=== PATIENT | female | born 1945 | race Caucasian/White ===

== ENCOUNTER → 2019-07-01 07:40 | Outpatient (CLI) | payer MEDICARE, MEDICAID ==
[2012-11-14 15:42] VITALS: BMI 23.2
[~2019-07-01 07:40] MED LIST: ACETAMINOPHEN325 MG PO; ALOPHEN PILLS5 MG PO; HYDROCODON-ACE1 EAC7 PO; K-TAB10 MEQ PO; MACROBID100 MG PO; NORMODYNE / TR200 MG PO; NORVASC5 MG PO; PRAVACHOL40 MG PO; ULTRAM50 MG PO; VITAMIN D31000 UNIT PO; ZANAFLEX4 MG PO
== END | disposition home or self-care (01) ==
LOC: D.CT 07:40
PROVIDERS: ATTEND Legal Medicine
DX: N28.1 Cyst of kidney, acquired (principal)

== ENCOUNTER 2019-07-15 13:41 | Emergency (ER) | payer MEDICARE, MEDICAID ==
[~2019-07-15] VITALS: Ht 162.6 cm; Wt 65.5 kg
[2019-07-15 13:47] VITALS: Ht 162.6 cm; Wt 65.5 kg
[2019-07-15] MEDS ORDERED: NORMODYNE / TR200 MG PO (13:49)
[2019-07-15] MEDS ORDERED: ALOPHEN PILLS5 MG PO (13:49)
[2019-07-15] MEDS ORDERED: HYDROCODON-ACE1 EAC7 PO (13:49)
[2019-07-15] MEDS ORDERED: ZANAFLEX4 MG PO (13:50)
[2019-07-15] MEDS ORDERED: NORVASC5 MG PO (13:50)
[2019-07-15] MEDS ORDERED: PRAVACHOL40 MG PO (13:50)
[2019-07-15] MEDS ORDERED: K-TAB10 MEQ PO (13:50)
[2019-07-15] MEDS ORDERED: ULTRAM50 MG PO (13:51)
[2019-07-15] MEDS ORDERED: ACETAMINOPHEN325 MG PO (13:51)
[2019-07-15] MEDS ORDERED: VITAMIN D31000 UNIT PO (13:52)
[2019-07-15 14:07] LABS: BASOPHILS 0.1 % (0-2); EOSINOPHILS 4.7 % (0-7); HEMATOCRIT 41.4 % (36.0-48.0); HEMOGLOBIN 13.8 g/dL (12-16); IMMATURE GRANULOCYTES 0.4 % (0-5); LYMPHOCYTES 9.5 % (15-50); MCH 29.2 pg (26.0-34.0); MCHC 33.3 g/dL (31.0-37.0); MCV 87.7 fL (80.0-100.0); MEAN PLATELET VOLUME 9.8 fL (7.4-10.4); MONOCYTES 8.1 % (2-11); NEUTROPHILS 77.2 % (40-80); RBC 4.72 10x6/uL (4.00-5.40); RDW 13.5 % (11.5-14.5); WBC 13.5 10x3/uL (4.8-10.8)
[2019-07-15 14:23] LABS: ALBUMIN 2.8 g/dL (3.4-5.0); ANION GAP 11.3 mmol/L (8-16); BILIRUBIN - TOTAL 0.37 mg/dL (0.2-1.3); CALCIUM 9.4 mg/dL (8.5-10.1); POTASSIUM - SERUM 3.3 mmol/L (3.5-5.1); PROTEIN - SERUM 6.4 g/dL (6.4-8.2)
[2019-07-15 14:26] LABS: PLATELET COUNT 291 10x3/uL (130-400)
[2019-07-15 14:54] LABS: APPEARANCE CLEAR (CLEAR); BILIRUBIN NEGATIVE (NEGATIVE); COLOR YELLOW (YELLOW); GLUCOSE NEGATIVE (NEGATIVE); KETONE NEGATIVE (NEGATIVE); NITRITE NEGATIVE (NEGATIVE); PROTEIN 2+ mg/dL (NEGATIVE); SPECIFIC GRAVITY 1.015 (1.005-1.020); UROBILINOGEN NORMAL (NORMAL)
[2019-07-15 14:55] LABS: BACTERIA MANY /hpf (NEGATIVE); EPITHELIAL CELLS OCC /hpf (0-5); RED CELLS - URINE OCC /hpf (0-5); WHITE CELLS - URINE 0-5 /hpf (NEGATIVE)
[2019-07-15] MEDS ORDERED: MACROBID100 MG PO (17:52)
[2019-07-15 19:37] VITALS: BP 173/91
== END 2019-07-15 19:38 | disposition home or self-care (01) ==
LOC: D.ER 13:41
PROVIDERS: Family Medicine
DX: N39.0 Urinary tract infection, site not specified (principal)